=== PATIENT | male | born 1950 | race Caucasian/White ===

== ENCOUNTER 2022-01-18 09:47 | Day surgery (SDC) | payer MEDICARE, OTHER ==
[2022-01-13 14:47] VITALS: BMI 27.8
[2022-01-18] MEDS ORDERED: Bacitracin Zinc Ointment 30 gm TUBE ONE (10:10)
[2022-01-18] MEDS ORDERED: Ciprofloxacin 0.2% Otic (0.25ML CONTAINER) ONE (10:10)
[2022-01-18] MEDS ORDERED: Lidocaine 1% w/Epinephrine 1:100K 20 ML VIAL ONE (10:10)
[2022-01-18] MEDS ORDERED: ceFAZolin (BATCH) 2 GM/100 ML BAG ONE (10:37)
[2022-01-18] MEDS ORDERED: Lidocaine 1% PF 5 ML VIAL ONE (10:54)
[2022-01-18] MEDS ORDERED: PROPOFOL 200 MG/20 ML VIAL ONE (10:54)
[2022-01-18] MEDS ORDERED: Ondansetron PF 4 MG/2 ML Vial ONE (10:54)
[2022-01-18] MEDS ORDERED: Glycopyrrolate 0.2 MG/ML 5 ML SYRINGE ONE (10:54)
[2022-01-18] MEDS ORDERED: Rocuronium Bromide 10 MG/ML (10ML VIAL) ONE (10:54)
[2022-01-18] MEDS ORDERED: Dexamethasone 20 MG/5 ML VIAL ONE (10:54)
[2022-01-18] MEDS ORDERED: Ketorolac Tromethamine 30 MG/ML VIAL ONE (10:54)
[2022-01-18] MEDS ORDERED: ePHEDrine 50 MG/ML VIAL ONE (10:54)
[2022-01-18] MEDS ORDERED: Ketoconazole 2% Cream 15 gm Tube TOP SCH (11:00)
[2022-01-18] MEDS ORDERED: EPINEPHrine 1 MG/ML AMP ONE (11:28)
[2022-01-18] MEDS ORDERED: SUGAMMADEX SODIUM 200 MG/2 ML VIAL ONE (12:22)
[2022-01-23 13:37] LABS: Fungus Stain Final report (.)
== END 2022-01-18 14:15 | disposition home or self-care (01) ==
LOC: SDC 09:47
PROVIDERS: ATTEND Student in an Organized Health Care Education/Training Program
PROC: 09B58ZZ Excision of Right Middle Ear, Via Natural or Artificial Opening Endoscopic (ICD-10-PCS; principal; 2022-01-18)
DX: H74.8X1 Other specified disorders of right middle ear and mastoid (principal); H60.01 Abscess of right external ear; H92.11 Otorrhea, right ear; H90.8 Mixed conductive and sensorineural hearing loss, unspecified; B36.9 Superficial mycosis, unspecified; H62.41 Otitis externa in other diseases classified elsewhere, right ear; M26.609 Unspecified temporomandibular joint disorder, unspecified side; I10 Essential (primary) hypertension; E78.5 Hyperlipidemia, unspecified; Z79.899 Other long term (current) drug therapy; Z88.1 Allergy status to other antibiotic agents
CPT/HCPCS: 87070; 87102; 87205; 87206; 88304; 93005; 93010; J0171; J0690; J1100; J1885; J2405; J2704; J3490

== ENCOUNTER 2022-02-04 08:53 | Outpatient (CLI) | payer MEDICARE, OTHER | END 2022-02-04 08:54 | disposition home or self-care (01) | LOC: BICCT 08:53 | PROVIDERS: ATTEND Student in an Organized Health Care Education/Training Program | DX: R22.0 Localized swelling, mass and lump, head (principal); M26.69 Other specified disorders of temporomandibular joint; H61.891 Other specified disorders of right external ear | CPT/HCPCS: 70480 ==

== ENCOUNTER 2024-09-20 08:25 | Outpatient (CLI) | payer MEDICARE, OTHER | END 2024-09-20 08:26 | disposition home or self-care (01) | LOC: BICULT 08:25 | PROVIDERS: ATTEND Family Medicine | DX: C22.0 Liver cell carcinoma (principal); R16.1 Splenomegaly, not elsewhere classified; K76.0 Fatty (change of) liver, not elsewhere classified; R93.2 Abnormal findings on diagnostic imaging of liver and biliary tract; N28.1 Cyst of kidney, acquired | CPT/HCPCS: 36415; 71046; 76700; 80053; 82105; 85025; 85610; 85730 ==